=== PATIENT | female | born 1985 | race Caucasian/White ===

== ENCOUNTER 2017-07-19 17:05 | Inpatient (IN) | payer MEDICAID ==
[2017-07-19] MEDS ORDERED: Sodium Chloride 0.9% 10 ML Syringe FLUSH PRN (17:37)
[2017-07-19] MEDS ORDERED: Nalbuphine 10 MG/1 ML Vial IVPUSH PRN (17:37)
[2017-07-19] MEDS ORDERED: Lidocaine 1% 50 ML MDV INJECT PRN (17:37)
[2017-07-19] MEDS ORDERED: Water For Irrigation,Sterile 1,000 ML Container IRR PRN (17:37)
[2017-07-19] MEDS ORDERED: Sodium Chloride 0.9% 2.5 ML Syringe FLUSH PRN (17:37)
[2017-07-19] MEDS ORDERED: Methylergonovine 0.2 MG/1 ML Amp IM PRN (17:37)
[2017-07-19] MEDS ORDERED: Tranexamic Acid 1,000 MG in Sodium Chloride 0.9% 100 ML IV PRN (17:37)
[2017-07-19] MEDS ORDERED: Misoprostol 200 MCG Tab PO PRN (17:37)
[2017-07-19] MEDS ORDERED: Carboprost Tromethamine 250 MCG/1 ML Amp IM PRN (17:37)
[2017-07-19] MEDS ORDERED: Terbutaline 1 MG/ML SDV SUBCUT PRN (17:37)
[2017-07-19] MEDS ORDERED: Butorphanol 1 MG/ML SDV IVPUSH PRN (17:37)
[2017-07-19] MEDS ORDERED: Oxytocin/0.9 % Sodium Chloride 30 UNIT/500 ML BAG IV SCH ×2 (17:45)
[2017-07-19] MEDS: Lactated Ringers 1,000 ML IV SCH (18:05)
[2017-07-19] MEDS: Misoprostol 25 MCG (1/4 of 100 MCG) Tab VAG PRN (18:31)
[2017-07-20] MEDS: Misoprostol 25 MCG (1/4 of 100 MCG) Tab VAG PRN (00:45)
[2017-07-20] MEDS: Lactated Ringers 1,000 ML IV SCH ×2 (03:21→05:17)
--- NOTE | 2017-07-20 03:47 | PCM.PREANE ---
Preanesthetic Assessment - Anesthesia/Transfusion/Family Hx Anesthesia History: Prior Anesthesia Without Reaction Transfusion History: No Prior Transfusion(s) - Review of Systems General: No Symptoms Pulmonary: No Symptoms Cardiovascular: No Symptoms Gastrointestinal: No Symptoms Neurological: No Symptoms Other: Reports: None - Physical Assessment Height: 5 ft Weight: 81.193 kg ASA Class: 2 Mental Status: Alert & Oriented x3 Airway Class: Mallampati = 2 Dentition: Reports: Normal Dentition Thyro-Mental Finger Breadths: 3 Mouth Opening Finger Breadths: 3 ROM/Head Extension: Full Lungs: Clear to Auscultation, Normal Respiratory Effort Cardiovascular: Regular Rate, Regular Rhythm - Lab Values: Laboratory Last Values WBC 10.65 K/uL (4.0-11.0) 07/19/17 17:56 RBC 3.82 M/uL (4.30-5.90) L 07/19/17 17:56 Hgb 12.9 g/dL (12.0-16.0) 07/19/17 17:56 Hct 37.5 % (36.0-46.0) 07/19/17 17:56 MCV 98.2 fL (80.0-98.0) H 07/19/17 17:56 MCH 33.8 pg (27.0-32.0) H 07/19/17 17:56 MCHC 34.4 g/dL (31.0-37.0) 07/19/17 17:56 RDW Std Deviation 46.1 fl (28.0-62.0) 07/19/17 17:56 RDW Coeff of Patrick 13 % (11.0-15.0) 07/19/17 17:56 Plt Count 245 K/uL (150-400) 07/19/17 17:56 MPV 9.20 fL (7.40-12.00) 07/19/17 17:56 Nucleated RBC % 0.0 /100WBC 07/19/17 17:56 Nucleated RBCs # 0 K/uL 07/19/17 17:56 Blood Type O POSITIVE 07/19/17 17:56 Antibody Screen NEGATIVE 07/19/17 17:56 - Allergies Allergies/Adverse Reactions: Allergies Allergy/AdvReac Type Severity Reaction Status Date / Time No Known Allergies Allergy Verified 07/19/17 17:32 - Acknowledgements Anesthesia Type Planned: Epidural Pt an Appropriate Candidate for the Planned Anesthesia: Yes Alternatives and Risks of Anesthesia Discussed w Pt/Guardian: Yes Pt/Guardian Understands and Agrees with Anesthesia Plan: Yes PreAnesthesia Questionnaire HEENT History: Reports: Impaired Vision Cardiovascular History: Reports: None Respiratory History: Reports: None Gastrointestinal History: Reports: GERD Genitourinary History: Reports: None [employer] 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 Psychiatric History: Reports: Depression Endocrine/Metabolic History: Reports: Obesity/BMI 30+ Hematologic History: Reports: None Immunologic History: Reports: None Oncologic (Cancer) History: Reports: None Dermatologic History: Reports: None - Infectious Disease History Infectious Disease History: Reports: None - Past Surgical History HEENT Surgical History: Reports: None Musculoskeletal Surgical History: Reports: None - SUBSTANCE USE Smoking Status *Q: Never Smoker Second Hand Smoke Exposure: No Recreational Drug Use History: No - HOME MEDS Home Medications: Home Meds Escitalopram [Lexapro] 20 mg PO DAILY 07/19/17 [History] Magnesium Oxide 400 mg PO BID 07/19/17 [History] PNV95/Ferrous Fumarate/FA [ Tablet] 1 tab PO DAILY 07/19/17 [History] - CURRENT (IN HOUSE) MEDS Current Meds: Current Medications Butorphanol Tartrate (Stadol) 1 mg IVPUSH Q1H PRN PRN Reason: Pain Last Admin: 07/20/17 02:47 Dose: 1 mg Carboprost Tromethamine (Hemabate Ds) 250 mcg IM ASDIRECTED PRN PRN Reason: Post Hemorrhage Lactated Ringer's (Ringers, Lactated) 1,000 mls @ 150 mls/hr IV ASDIRECTED MALICK Last Admin: 07/20/17 03:21 Dose: 500 mls/hr Oxytocin/Sodium Chloride (Oxytocin 30 Unit/500 Ml-Ns) 30 unit in 500 mls @ 999 mls/hr IV TITRATE MALICK Oxytocin/Sodium Chloride (Oxytocin 30 Unit/500 Ml-Ns) 30 unit in 500 mls @ 2 mls/hr IV TITRATE MALICK; 2 MUNITS/MIN PRN Reason: Protocol Tranexamic Acid 1,000 mg/ (Sodium Chloride) 110 mls @ 600 mls/hr IV ONETIME PRN PRN Reason: Bleeding Lidocaine HCl (Xylocaine 1%) 50 ml INJECT .ONCE PRN PRN Reason: Laceration repair Methylergonovine Maleate (Methergine) 0.2 mg IM ASDIRECTED PRN PRN Reason: Post Hemorrhage Misoprostol (Cytotec) 200 mcg PO .ONCE PRN PRN Reason: Post Hemorrhage Nalbuphine HCl (Nubain) 10 mg IVPUSH Q1H PRN PRN Reason: Pain (severe 7-10) Sodium Chloride (Saline Flush) 10 ml FLUSH ASDIRECTED PRN PRN Reason: Keep Vein Open Sodium Chloride (Saline Flush) 2.5 ml FLUSH ASDIRECTED PRN PRN Reason: Keep Vein Open Sterile Water (Sterile Water For Irrigation) 1,000 ml IRR ASDIRECTED PRN PRN Reason: delivery Terbutaline Sulfate (Brethine) 0.25 mg SUBCUT ASDIRECTED PRN PRN Reason: Tacysystole Discontinued Medications Misoprostol (Cytotec) 25 mcg VAG Q6H PRN PRN Reason: Cervical Ripening Last Admin: 07/20/17 00:45 Dose: 25 mcg
[2017-07-20] MEDS ORDERED: Witch Hazel Medicated Pads 40/Jar TOP PRN (07:34)
[2017-07-20] MEDS ORDERED: Lanolin 100% Cream 7 GM Tube TOP PRN (07:34)
[2017-07-20] MEDS ORDERED: Benzocaine/Menthol 20%-0.5% Spray 78 GM Cannister TOP PRN (07:34)
[2017-07-20] MEDS ORDERED: Docusate Sodium 100 MG Cap PO PRN (07:34)
[2017-07-20] MEDS ORDERED: oxyCODONE 5 MG Tab PO PRN (07:34)
[2017-07-20] MEDS ORDERED: Acetaminophen 500 MG Tab PO PRN ×2 (07:34)
[2017-07-20] MEDS ORDERED: Ibuprofen 400 MG Tab PO PRN (07:34)
[2017-07-20] MEDS ORDERED: Bisacodyl 10 MG Supp RECTAL PRN (07:34)
[2017-07-20] MEDS: Ibuprofen 800 MG Tab PO PRN (11:23)
--- NOTE | 2017-07-20 13:42 | OR ---
SURGEON: Marilou Giles MD DATE OF PROCEDURE: 07/20/2017 PREOPERATIVE DIAGNOSES: 1. Intrauterine at 40 weeks and 5 days. 2. Postdates induction of labor. POSTOPERATIVE DIAGNOSES: 1. Intrauterine at 40 weeks and 5 days. 2. Postdates induction of labor. 3. Delivered. PROCEDURES: 1. Spontaneous vaginal delivery. 2. Repair of perineal laceration. ANESTHESIA: Epidural. ESTIMATED BLOOD LOSS: Less than 150 mL. COMPLICATIONS: None. DISPOSITION: Mother stable in Labor and Delivery room. Baby stable to nursery. FINDINGS: Male infant, weight pending, score 6 and 7 at 1 and 5 minutes respectively. Meconium-stained amniotic fluid. Grossly normal placenta with 3- vessel cord. Second-degree perineal laceration. BRIEF HISTORY: Tammy is a 32-year-old, G3, P1-0-1-1, who was admitted overnight at 40 weeks and 4 days gestation for postdates induction of labor. care was complicated with depression, symptoms controlled on escitalopram. Her GBS status was negative. She received 2 doses of 25 mcg Cytotec, vaginally, 6 hours apart for cervical ripening and progressed 4 cm dilatation, requested an epidural, which she received. Shortly after the epidural, spontaneous rupture of membrane occurred with copious amount of meconium-stained amniotic fluid, this was followed by recurrent decelerations, both variable and late in description, down to 70s and 80 beats. She wasn't hypotensive post epidural placement and was jersey every 2 to 3 minute. The RN had examined the patient after the rupture of membranes reported found to be 6 to 7 cm dilated. I was notified of the above and as I made my way into the hospital, I instructed that she should be given a dose of terbutaline to space out the contractions.Upon arrival, the strip was recovering and contractions had spaced out. I re-examined her and at this stage she was 7-8 cm dilated,80% effaced, station -1. I placed an IUPC. scalp electrode had already been placed by the RN. Her strip recovered and she started having early decelerations. Within 45 minutes and became fully dilated and with increasing rectal pressure, she was encouraged to commence pushing. Metal Cnc Operator was notified to be present for delivery. She pushed very well bringing the baby's head down to a +4 station within 10 minutes and was set up for delivery modified dorsal lithotomy position. DESCRIPTION OF PROCEDURE: The patient had a spontaneous vaginal delivery of a live male infant in direct occipital anterior position, copious amount of meconium-stained amniotic fluid, with nuchal cord x 1 noted a delivery. Anterior and the posterior shoulders and the rest of the baby were delivered without difficulty and the nuchal cord was reduced after delivery of the baby.The baby was vigorous and cried spontaneously at . The oropharynx and nostrils were bulb suctioned on the perineum and the baby was then delivered onto the maternal abdomen with the nursery staff stimulating and drying him. Delayed cord clamping was performed and the cord was subsequently cut by the grandmother. As the cord was being cut, the was noted to have secondary apnea He was quickly transferred straight to the resuscitator for further evaluation. Dr. Faust, the retail associate, had been called in for the delivery and was already on his way in. With delivery of the , oxytocin infusion was commenced for active management of 3rd stage of labor.Cord blood and gas samples were obtained. The placenta was delivered by controlled cord traction,appeared to be complete and intact. Examination of the perineum revealed a second-degree perineal laceration at 4 o'clock position.This was repaired with 2-0 Vicryl suture in 3 layers and was hemostatic post repair. Uterine massage was performed. Uterus was found to be well contracted below the umbilicus. The patient tolerated the procedure well. Sponge, instrument, and needle counts were correct at the end of the delivery. The baby transitioned well with further resuscitation by the nursery staff and went to the nursery for further assessment and observation . ADUMVIV / MODL /[id number] MTDShea
[2017-07-21] MEDS: Ibuprofen 800 MG Tab PO PRN (05:21)
[2017-07-21 08:25] VITALS: BP 109/56
--- NOTE | 2017-07-21 09:51 | PCM.PNPP ---
- General Info Date of Service: 07/21/17 Functional Status: Reports: Pain Controlled, Tolerating Diet, Ambulating, Urinating - Review of Systems General: Denies: Fever, Weakness Pulmonary: Denies: Shortness of Breath Cardiovascular: Denies: Chest Pain, Palpitations, Lightheadedness Gastrointestinal: Reports: Flatus. Denies: Abdominal Pain, Nausea, Vomiting Genitourinary: Denies: Flank Pain Neurological: Reports: No Symptoms Psychiatric: Reports: No Symptoms - General Info Date of Service: 07/21/17 - Patient Data Vital Signs - Most Recent: Last Vital Signs Temp 36.1 C 07/21/17 08:00 Pulse 75 07/21/17 08:00 Resp 14 07/21/17 08:00 BP 109/56 L 07/21/17 08:00 Pulse Ox 97 07/21/17 08:00 Weight - Most Recent: 81.193 kg Lab Results - Last 24 Hours: Laboratory Results - last 24 hr 07/21/17 Range/Units 05:11 Hgb 11.7 L (12.0-16.0) g/dL Hct 34.9 L (36.0-46.0) % Med Orders - Current: Current Medications Acetaminophen (Tylenol Extra Strength) 500 mg PO Q4H PRN PRN Reason: Pain Acetaminophen (Tylenol Extra Strength) 1,000 mg PO Q4H PRN PRN Reason: Pain Benzocaine/Menthol (Dermoplast Pain Relief 20%-0.5% [place]) 78 gm TOP ASDIRECTED PRN PRN Reason: Perineal Comfort Measure Last Admin: 07/20/17 11:23 Dose: 1 can Bisacodyl (Dulcolax) 10 mg RECTAL .ONCE PRN PRN Reason: Constipation Docusate Sodium (Colace) 100 mg PO BID PRN PRN Reason: Constipation Emollient Ointment (Lansinoh Hpa) 0 gm TOP ASDIRECTED PRN PRN Reason: Sore Nipples Ibuprofen (Motrin) 400 mg PO Q4H PRN PRN Reason: Pain Ibuprofen (Motrin) 800 mg PO Q6H PRN PRN Reason: Pain Last Admin: 07/21/17 05:21 Dose: 800 mg Oxycodone HCl (Oxycodone) 5 mg PO Q2H PRN PRN Reason: Pain Witch Cynthia (Tucks) 1 pad TOP ASDIRECTED PRN PRN Reason: comfort care Discontinued Medications Butorphanol Tartrate (Stadol) 1 mg IVPUSH Q1H PRN PRN Reason: Pain Last Admin: 07/20/17 02:47 Dose: 1 mg Carboprost Tromethamine (Hemabate Ds) 250 mcg IM ASDIRECTED PRN PRN Reason: Post Hemorrhage Lactated Ringer's (Ringers, Lactated) 1,000 mls @ 150 mls/hr IV ASDIRECTED MALICK Last Admin: 07/20/17 05:17 Dose: 150 mls/hr Oxytocin/Sodium Chloride (Oxytocin 30 Unit/500 Ml-Ns) 30 unit in 500 mls @ 999 mls/hr IV TITRATE MALICK Last Admin: 07/20/17 07:03 Dose: 999 mls/hr Oxytocin/Sodium Chloride (Oxytocin 30 Unit/500 Ml-Ns) 30 unit in 500 mls @ 2 mls/hr IV TITRATE MALICK; 2 MUNITS/MIN PRN Reason: Protocol Tranexamic Acid 1,000 mg/ (Sodium Chloride) 110 mls @ 600 mls/hr IV ONETIME PRN PRN Reason: Bleeding Fentanyl/Bupivacaine HCl (Jbrmmpow-Lyros-Sv 2 Mcg/Ml-0.125%) Confirm Administered Dose 100 mls @ as directed EP .STK-MED ONE Stop: 07/20/17 03:54 Last Admin: 07/20/17 08:54 Dose: Not Given Lidocaine HCl (Xylocaine 1%) 50 ml INJECT .ONCE PRN PRN Reason: Laceration repair Methylergonovine Maleate (Methergine) 0.2 mg IM ASDIRECTED PRN PRN Reason: Post Hemorrhage Misoprostol (Cytotec) 200 mcg PO .ONCE PRN PRN Reason: Post Hemorrhage Misoprostol (Cytotec) 25 mcg VAG Q6H PRN PRN Reason: Cervical Ripening Last Admin: 07/20/17 00:45 Dose: 25 mcg Nalbuphine HCl (Nubain) 10 mg IVPUSH Q1H PRN PRN Reason: Pain (severe 7-10) Sodium Chloride (Saline Flush) 10 ml FLUSH ASDIRECTED PRN PRN Reason: Keep Vein Open Sodium Chloride (Saline Flush) 2.5 ml FLUSH ASDIRECTED PRN PRN Reason: Keep Vein Open Sterile Water (Sterile Water For Irrigation) 1,000 ml IRR ASDIRECTED PRN PRN Reason: delivery Last Admin: 07/20/17 07:00 Dose: 1,000 ml Terbutaline Sulfate (Brethine) 0.25 mg SUBCUT ASDIRECTED PRN PRN Reason: Tacysystole Last Admin: 07/20/17 05:16 Dose: 0.25 mg - Infant Interaction Disposition, : [place] in Room with Family Support Person: Mother, Significant Other - Recovery Exam Fundal Tone: Firm Fundal Level: 1 Fingerbreadths Below Umbilicus Fundal Placement: Midline Lochia Amount: Small Lochia Color: Rubra/Red Perineum Description: Other (see below) Other Perinuem Description: 2 degree MLL Episiotomy/Laceration: Approximated Bladder Status: Voiding - Exam General: Alert, Oriented Lungs: Normal Respiratory Effort Cardiovascular: Regular Rate, Regular Rhythm GI/Abdominal Exam: Normal Bowel Sounds, Soft, Non-Tender Extremities: No: Julia's Sign Skin: Warm, Dry, Intact Psy/Mental Status: Normal Affect - Problem List & Annotations (1) Vaginal delivery SNOMED Code(s): 311210526 Code(s): O80 - ENCOUNTER FOR FULL-TERM UNCOMPLICATED DELIVERY Status: Acute Current Visit: Yes - Problem List Review Problem List Initiated/Reviewed/Updated: Yes - My Orders Last 24 Hours: My Active Orders 07/21/17 09:31 Ready for Discharge [RC] PER UNIT ROUTINE - Assessment Assessment:: PPD 1 status post - Plan Plan:: Discharge to home today. Discharge instructions reviewed. Follow up at [facility] 6 weeks. Infection and bleeding warnings reviewed.
== END 2017-07-21 10:50 | disposition home or self-care (01) | DRG 775 ==
LOC: MW.OBCHECK 17:05 → MW.OB 17:07 → MW.OBCHECK 17:37 → OBSVTOIN 07-20 07:02 → MW.OB 07-20 16:00
PROVIDERS: ADMIT Obstetrics & Gynecology; ATTEND Obstetrics & Gynecology
PROC: 10E0XZZ Delivery of Products of Conception, External Approach (ICD-10-PCS; principal; 2017-07-20)
PROC: 0KQM0ZZ Repair Perineum Muscle, Open Approach (ICD-10-PCS; 2017-07-20)
PROC: 3E0P7VZ Introduction of Hormone into Female Reproductive, Via Natural or Artificial Opening (ICD-10-PCS; 2017-07-20)
PROC: 10H07YZ Insertion of Other Device into Products of Conception, Via Natural or Artificial Opening (ICD-10-PCS; 2017-07-20)
DX: O48.0 Post-term pregnancy (principal); O70.1 Second degree perineal laceration during delivery; O99.344 Other mental disorders complicating childbirth; O77.0 Labor and delivery complicated by meconium in amniotic fluid; O76 Abnormality in fetal heart rate and rhythm complicating labor and delivery; O69.1XX0 Labor and delivery complicated by cord around neck, with compression, not applicable or unspecified; Z3A.40 40 weeks gestation of pregnancy; Z37.0 Single live birth; Z79.899 Other long term (current) drug therapy
CPT/HCPCS: 01967; 36415; 51702; 59025; 59409; 82803; 85014; 85018; 85027; 86850; 86900; 86901; 88307; A9270-GY; J0595; J2590; J3105; J7120